=== PATIENT | male | born 1995 | race Caucasian/White ===

== ENCOUNTER → 2021-05-23 12:55 | Outpatient (CLI) | payer OTHER, SELFPAY ==
[2021-05-23 13:45] LABS: Absolute Lymphocyte Count 1.94 X10^3/uL (0.83-4.51); Absolute Neutrophil Count 2.7 X10^3/uL (2.0-7.7); Basophil# 0.03 X10^3/uL; Basophil% 0.5 % (0-1); Eosinophil# 0.45 X10^3/uL; Eosinophils% 7.9 % (0-5); Lymphocyte # 1.94 X10^3/ul (0.83-4.51); Lymphocyte % 33.9 % (19-41); Mean Corp Hgb Conc 33.3 g/dL (32-36); Mean Corpuscular Hgb 25.9 pg (27.0-32.0); Mean Corpuscular Volume 77.8 fL (80-94); Mean Platelet Vol. 11.1 fl (6.2-12.0); Monocyte% 10.5 % (0-10); NRBC Flagged by Analyzer 0 % (0-5); Neutrophil # 2.68 X10^3/uL (2.7-7.7); Neutrophil % 46.9 % (47-70); POSITIVE MORPHOLOGY YES; Platelet Count 290 K/mm3 (150-450); RBC Distribution Width CV 13.2 % (11.6-14.6); RBC Distribution Width SD 37.2 fl (35.1-43.9); White Blood Count 5.7 K/mm3 (4.4-11.0)
[2021-05-23 13:47] LABS: Differential Indicated SCAN CRITERIA MET
[2021-05-23 14:26] LABS: Free T3 6.4 pg/mL (2.18-3.98); T4 Free Direct 1.28 ng/dL (0.76-1.46)
[2021-05-23 14:35] LABS: Differential Comment SCANNED; Reactive Lymphocyte 1+
[2021-05-25 12:40] LABS: Thyroid Peroxidase AB 37 IU/mL (0-34)
== END ==
PROVIDERS: PCP Family Medicine; Referring Provider Nurse Practitioner Family; Visit Provider Nurse Practitioner Family
DX: E05.90 Thyrotoxicosis, unspecified without thyrotoxic crisis or storm (principal); J02.9 Acute pharyngitis, unspecified
CPT/HCPCS: 36415; 84439; 84481; 85025; 86376

== ENCOUNTER 2021-08-24 14:11 | Outpatient (CLI) | payer OTHER, SELFPAY ==
[2021-08-24 15:47] LABS: Free T3 4.2 pg/mL (2.18-3.98)
== END 2021-08-24 23:59 | disposition short-term general hospital (02) ==
LOC: BIMLAB 14:11
PROVIDERS: PCP Family Medicine; Referring Provider Internal Medicine Endocrinology, Diabetes & Metabolism; Visit Provider Internal Medicine Endocrinology, Diabetes & Metabolism
DX: E05.90 Thyrotoxicosis, unspecified without thyrotoxic crisis or storm (principal)
CPT/HCPCS: 36415; 84481